=== PATIENT | female | born 1950 | race Caucasian/White ===

== ENCOUNTER → 2016-06-21 | Outpatient (REF) | payer MEDICARE ==
[~2016-06-21] MED LIST: ALBU83IN INH; FISH1000 PO; LISI-538 PO; PRAV20TA2 PO; VITA100037 PO
== END ==
LOC: M LAB REF 13:02
PROVIDERS: ATTEND Internal Medicine Nephrology
DX: N18.9 Chronic kidney disease, unspecified (principal); D63.1 Anemia in chronic kidney disease

== ENCOUNTER → 2016-06-26 | Outpatient (CLI) | payer MEDICARE ==
--- NOTE | 2016-06-26 09:43 | REP ---
RENAL ULTRASOUND: Real-time sonographic evaluation of the right renal fossa and left kidney performed, status post right nephrectomy for renal cell carcinoma several years ago. Right renal fossa appears unremarkable. Left kidney measures 11.9 x 5.7 x 5.4 cm. There is no hydronephrosis. There is a cyst in the upper pole of the left kidney 2.5 x 1.7 x 2.7 cm. Two smaller cysts are seen in the lower pole of the left kidney. No renal stones are seen. The urinary bladder is moderately distended with no mass or calculus. IMPRESSION: Status post right nephrectomy. Left renal cyst. Signed by Rick Almanza MD 06/26/2016 04:13 P
== END ==
LOC: M RAD 06:44
PROVIDERS: ATTEND Internal Medicine Nephrology
DX: N28.1 Cyst of kidney, acquired (principal); Z90.5 Acquired absence of kidney; I10 Essential (primary) hypertension; N18.4 Chronic kidney disease, stage 4 (severe)

== ENCOUNTER → 2016-07-27 | Outpatient (CLI) | payer MEDICARE ==
--- NOTE | 2016-07-27 13:49 | REP ---
Left lower extremity Duplex Doppler venous ultrasound: Real time compression and duplex Doppler interrogation of the left lower extremity deep venous system is performed. The left common femoral, superficial femoral and popliteal veins are fully compressible with transducer pressure and demonstrate normal spontaneous and phasic flow, without evidence of deep venous thrombosis. Impression: No evidence of deep venous thrombosis of the left lower extremity femoral popliteal venous system. Signed by Rick Almanza MD 07/27/2016 01:40 P
== END ==
LOC: M RAD 12:49
PROVIDERS: ATTEND Physician Assistant
DX: M79.605 Pain in left leg (principal)

== ENCOUNTER → 2016-08-14 | Outpatient (REF) | payer MEDICARE | LOC: M LAB REF 15:23 | PROVIDERS: ATTEND Ophthalmology | DX: H02.831 Dermatochalasis of right upper eyelid (principal); H02.834 Dermatochalasis of left upper eyelid ==

== ENCOUNTER 2016-10-15 23:37 | Inpatient (IN) | payer MEDICARE ==
[~2016-10-15] VITALS: Ht 162.6 cm; Wt 77.8 kg
[~2016-10-15 23:37] MED LIST changes: -VITA100037 PO; +VITA100067 PO
[2016-10-16] VITALS (7 sets, daily range): BP systolic 101–141; BP diastolic 55–70
[2016-10-16] MEDS ORDERED: METO50TA7 PO (01:20)
[2016-10-16] MEDS ORDERED: FERR32TA PO (01:20)
[2016-10-16] MEDS ORDERED: AMLO2.5T PO (01:20)
[2016-10-16] MEDS ORDERED: GABA-282 PO (01:20)
[2016-10-16] MEDS ORDERED: ZYRT10TA2 PO (01:20)
[2016-10-16] MEDS ORDERED: ANAS1TAB PO (01:20)
[2016-10-16] MEDS ORDERED: PROAAER10 INH (01:20)
[2016-10-16] MEDS ORDERED: FURO20TA2 PO (01:20)
[2016-10-16] MEDS ORDERED: LISI40TAB PO (01:21)
[2016-10-16] MEDS ORDERED: PAZE1DRO OU (01:22)
[2016-10-16] MEDS: NS 1,000 ML IV SCH ×3 (02:01→23:30)
--- NOTE | 2016-10-16 02:47 | HPEPDOC ---
General Date of Admission Oct 16, 2016 at 00:53 Primary Care Physician: Te Cornell MD Attending Physician: Te Cornell MD Chief Complaint The patient is a 66-year-old female admitted with a reason for visit of Hyponatremia. Source: Patient Exam Limitations: No limitations Timing/Duration: Day(s) (2) Severity: Severe Associated Symptoms: Loss of appetite, Nausea History of Present Illness 66-year-old female, history of breast cancer status post mastectomy, diverticulitis, status post colectomy colostomy and reversal, renal cancer status post nephrectomy, presented with a abdominal pain. Abdominal pain is since 2 days associated with nausea. no known diarrhea or constipation. She presented to the nearby emergency room at [facility] in [facility] and was transferred to [facility] for hyponatremia and enteritis and UTI Home Medications Scheduled (Pazeo) 0.7 % Harsh, 1 DROP OU DAILY, (Reported) Amlodipine Besylate (Amlodipine Besylate) 2.5 Mg Tab, 2.5 MG PO DAILY, (Reported ) Anastrozole (Anastrozole) 1 Mg Tab, 1 MG PO DAILY, (Reported) Cetirizine HCl (Zyrtec Allergy) 10 Mg Tab, 10 MG PO DAILY, (Reported) Ferrous Gluconate (Ferrous Gluconate) 324 Mg Tab, 324 MG PO DAILY, (Reported) Fish Oil (Fish Oil) 1,000 Mg Cap, 1,000 MG PO DAILY, (Reported) Furosemide (Furosemide) 20 Mg Tab, 60 MG PO DAILY, (Reported) Gabapentin (Gabapentin) 300 Mg Cap, 300 MG PO TID, (Reported) Lisinopril (Lisinopril) 40 Mg Tab, 40 MG PO DAILY, (Reported) Metoprolol Tartrate (Metoprolol Tartrate) 50 Mg Tab, 50 MG PO BID, (Reported) Pravastatin Sodium (Pravastatin Sodium) 20 Mg Tab, 20 MG PO DAILY, (Reported) Vitamin D (Vitamin D) 1,000 Unit Cap, 1,000 UNIT PO DAILY, (Reported) Scheduled PRN Albuterol Sulfate (Albuterol Sulfate) 2.5 Mg/3 Ml Nebu, 2.5 MG INH QID PRN for SOB/WHEEZING, (Reported) Albuterol Sulfate (Proair Hfa) 108 Mcg/Act Aer, 2 PUFF INH Q4H PRN for SHORTNESS OF BREATH, (Reported) Allergies Coded Allergies: Codeine (Verified Allergy, Unknown, 07/29/12) Ibuprofen (Verified Allergy, Unknown, 07/29/12) Iodine (Verified Allergy, Unknown, RASH, 07/29/12) Latex (Verified Allergy, Unknown, 07/29/12) NSAIDs (Verified Allergy, Unknown, 07/29/12) Penicillins (Verified Allergy, Unknown, HIVES, 07/29/12) Penicillins Cross Reactors (Verified Allergy, Unknown, HIVES, 07/29/12) Pseudoephedrine (Verified Allergy, Unknown, 07/29/12) Past Medical History Medical History Breast cancer, hypertensive renal cancer, diverticulitis Surgical History Appendectomy, mastectomy, oophorectomy, nephrectomy, colectomy and colostomy and reversal Family History Significant Family History: No pertinent family hx Social History * Smoker: less than 1 pack/day Alcohol: Denies Drugs: denies Recent Travel/Sick Contacts: Denies: Recent travel, Recent sick contacts Psychosocial History: No pertinent psych hx Review of Symptoms Constitutional: Denies: Chills, Fever, Night Sweats Eyes: Denies: Pain, Vision change ENT: Denies: Head Aches, Ear Pain, Dysphagia Skin: Denies: Rash, Lesions, Breakdown Pulmonary: Denies: Dyspnea, Cough Cardiovascular: Denies: Chest Pain, Palpitations, Orthopnea, Paroxysmal Noc. Dyspnea, Lt Headedness Gastrointestinal: Reports: Nausea, Abdominal Pain, Denies: Vomiting, Diarrhea Genitourinary: Denies: Dysuria, Frequency, Incontinence, Retention Hematologic: Denies: Bruising, Bleeding Excessively Musculoskeletal: Denies: Neck Pain, Back Pain, Joint Pain, Muscle Pain, Spasms Neurological: Denies: Weakness, Numbness, Change in speech, Confusion Psych: Reports: Mood Normal, Denies: Depression, Memory Issues Physical Examination General Exam: Positive: Alert, No Acute Distress Eye Exam: Positive: PERRLA, Conjunctiva & lids normal, EOMI, Negative: Sclera icteric ENT Exam: Positive: Atraumatic, Mucous membr. moist/pink, Pharynx Normal Neck Exam: Positive: Supple, Negative: JVD, thyromegaly Chest Exam: Positive: Clear to auscultation, Normal air movement Heart Exam: Positive: Rate Normal, Regular Rhythm, Normal S1, Normal S2, Negative: Murmurs, Rubs Telemetry: Positive: No significant arrhythmia Abdomen Exam: Positive: BS Hypoactive, Soft, Tenderness, Negative: Hepatospenomegaly Extremity Exam: Positive: Normal pulses, Negative: Clubbing, Cyanosis, Edema Skin Exam: Positive: Nl turgor and temperature, Negative: Breakdown, Lesion Neuro Exam: Positive: Normal Gait, Normal Speech, Cranial Nerves 3-12 NL, Reflexes 2+ Psych Exam: Positive: Mental status NL, Mood NL, Oriented x 3 Vital Signs Vital Signs Date Time Temp Pulse Resp B/P (MAP) Pulse Ox O2 Delivery O2 Flow Rate FiO2 10/16/16 01:00 Nasal Cannula 2.0 10/16/16 00:55 99.7 77 18 134/70 (91) 92 Assessment/Plan 66-year-old female, history of breast cancer status post mastectomy, renal cancer status post nephrectomy diverticulitis is status post colectomy presented with abdominal pain and admitted for enteritis hyponatremia and UTI Problems (1) Urinary tract infection Problem Text: WBC 17.1. Urine analysis positive for UTI as started IV Cipro. Follow-up culture (2) Enteritis Problem Text: CT of the abdomen showed enteritis as started IV Cipro and Flagyl (3) Hyponatremia Problem Text: Sodium 127 as started IV normal saline at 100 mL per hour. Follow -up sodium (4) Tobacco abuse Problem Text: As started nicotine patch (5) Hypertension Problem Text: Continue home dose of beta meagan, TRAE inhibitor, Lasix and Norvasc. Patient denies any history of CHF. We will get echocardiogram to rule out CHF Plan / VTE VTE Prophylaxis Ordered?: Yes Plan IVF: Initiate Diet: Continue Current Activity: Continue Current Medications: Replete Electrolytes IV Diagnostics: Repeat Labs in AM, TTE Anticipated Discharge: Home EKATERINA BUCKLEY MD Oct 16, 2016 02:47
[2016-10-16] MEDS: CIPROFLOXACIN 400 MG in APPROPRIATE DILUENT 1 EA IV SCH ×2 (04:07→16:22)
[2016-10-16] MEDS: metroNIDAZOLE 500 MG in APPROPRIATE DILUENT 1 EA IV SCH ×3 (05:24→21:14)
[2016-10-16 05:31] LABS: MEAN CORPUSCULAR HEMOGLOBIN 31.6 pg (27.0-33.0); MEAN CORPUSCULAR HGB CONC 34.4 g/dl (32.0-36.5); MEAN CORPUSCULAR VOLUME 91.9 fl (80.0-96.0); RED CELL DISTRIBUTION WIDTH 13.5 % (11.5-14.5)
[2016-10-16 05:42] LABS: ALBUMIN 2.5 GM/DL (3.2-5.2); ALBUMIN/GLOBULIN RATIO 0.78 (1.00-1.93); BILIRUBIN,TOTAL 0.5 MG/DL (0.2-1.0); CALCIUM LEVEL 8.3 MG/DL (8.8-10.2); CREATININE FOR GFR 1.26 MG/DL (0.55-1.02); POTASSIUM SERUM 3.7 MEQ/L (3.5-5.1); TOTAL PROTEIN 5.7 GM/DL (6.4-8.2)
[2016-10-16] MEDS: NICOTINE 14 MG/24 HR TRANSDERMAL TD SCH (09:35)
[2016-10-16] MEDS: ENOXAPARIN 40 MG/0.4 ML SYRINGE (J1650) SC SCH (09:35)
--- NOTE | 2016-10-16 10:56 | IPNPDOC ---
Subjective Date Seen The patient was seen on 10/16/16. Subjective Chief Complaint/HPI The patient is a 66-year-old female admitted with a reason for visit of Hyponatremia. Events since last encounter Pt this morning c/o tightness in her breathing. States that she usually uses a neb 3-4 times daily and hasn't had one since yest afternoon. Her abd pain has subsided some. She ate most of her breakfast this morning. She has not had a BM since a loose stool yesterday afternoon. General: Denies: Fatigue Constitutional: Denies: Chills, Fever Pulmonary: Reports: Dyspnea, Cough, Denies: Pleuritic Chest Pain Cardiovascular: Denies: Chest Pain, Palpitations Gastrointestinal: Reports: Abdominal Pain, Diarrhea, Denies: Nausea, Vomiting Genitourinary: Denies: Dysuria Neurological: Denies: Weakness Psych: Reports: Mood Normal Objective Physical Examination General Exam: Positive: Alert, No Acute Distress ENT Exam: Positive: Mucous membr. moist/pink Neck Exam: Positive: Supple, Negative: JVD, thyromegaly Chest Exam: Positive: Wheezing, Diminished, Negative: Clear to auscultation, Normal air movement Heart Exam: Positive: Rate Normal, Regular Rhythm, Normal S1, Normal S2, Negative: Murmurs, Rubs Telemetry: Positive: No significant arrhythmia Abdomen Exam: Positive: BS Hypoactive, Soft, Tenderness (mild LLQ tenderness), Negative: Hepatospenomegaly Extremity Exam: Positive: Normal pulses, Negative: Clubbing, Cyanosis, Edema Skin Exam: Positive: Nl turgor and temperature, Negative: Breakdown, Lesion Neuro Exam: Positive: Normal Gait, Normal Speech Psych Exam: Positive: Mental status NL, Mood NL, Oriented x 3 Assessment /Plan Problems (1) Urinary tract infection Status: Acute Discussed With: Patient Problem Specific Plan: Monitor Clinically, Repeat Labs Problem Text: D1 cipro/metro 10/16 obtain UCX/BCX done at [facility] WBC 17.1 on admission, repeat 12. Urine analysis positive for UTI as started IV Cipro. Follow-up culture pending (2) Enteritis Status: Acute Response to Treatment: Stable, Improving Discussed With: Patient Problem Specific Plan: Monitor Clinically, Repeat Labs Problem Text: 10/[address] AP-no BM since-check GI panel CT of the abdomen showed enteritis has had improvement in abd pain and stools hare less frequent (3) Hyponatremia Status: Acute Response to Treatment: Stable, Improving Discussed With: Patient Problem Specific Plan: Monitor Clinically, Repeat Labs Problem Text: baseline Na 136 favor 2 hypovolemic and dilutional (only took po H2O on 10/14, 10/15) 10/16 Sodium up from 127 to 128, continue NS 100 cc/H her oral intake has also improved. (4) Tobacco abuse Status: Chronic Response to Treatment: Stable Problem Text: As started nicotine patch (5) Hypertension Status: Chronic Response to Treatment: Stable Problem Text: Meds held, pressures low, monitor. (6) CKD (chronic kidney disease) stage 3, GFR 30-59 ml/min Status: Chronic Problem Text: baseline GFR 30s Plan/VTE VTE Prophylaxis Ordered?: Yes Plan IVF: Initiate Diet: Continue Current Activity: Continue Current Medications: Replete Electrolytes IV Diagnostics: Repeat Labs in AM, TTE Anticipated Discharge: Home VS, I&O, 24H, Fishbone Vital Signs/I&O Vital Signs Date Time Temp Pulse Resp B/P (MAP) Pulse Ox O2 Delivery O2 Flow Rate FiO2 10/16/16 08:00 97.9 62 18 101/55 (70) 97 Nasal Cannula 2.0 I&O- Last 24 Hours up to 6 AM 10/16/16 06:00 Intake Total 400 ml Output Total 0 ml Balance 400 ml Laboratory Data 24H LABS Laboratory Tests 2 10/16/16 04:57: Anion Gap 4L, Glomerular Filtration Rate 45.0, Blood Urea Nitrogen 29H, Creatinine 1.26H, Sodium Level 128L, Potassium Level 3.7, Chloride Level 93L, Carbon Dioxide Level 31, Calcium Level 8.3L, Aspartate Amino Transf (AST/SGOT) 11L, Alanine Aminotransferase (ALT/SGPT) 11L, Alkaline Phosphatase 81, Total Bilirubin 0.5, Total Protein 5.7L, Albumin 2.5L, Albumin/Globulin Ratio 0.78L CBC/BMP Laboratory Tests 10/16/16 04:57 Red Blood Count 3.22 L, Mean Corpuscular Volume 91.9, Mean Corpuscular Hemoglobin 31.6, Mean Corpuscular Hemoglobin Concent 34.4, Red Cell Distribution Width 13.5, Calcium Level 8.3 L, Aspartate Amino Transf (AST/SGOT) 11 L, Alanine Aminotransferase (ALT/SGPT) 11 L, Alkaline Phosphatase 81, Total Bilirubin 0.5, Total Protein 5.7 L, Albumin 2.5 L ANTELMO SALGADO PA-C Oct 16, 2016 10:56 Dimitri Frazier M.D. Oct 16, 2016 15:35
[2016-10-16] MEDS: IPRATROPIUM 0.5MG/ALBUTEROL 2.5MG INH SOL UD 3ML (DUONEB)(J7620) NEB SCH ×3 (10:57→20:57)
[2016-10-16] MEDS ORDERED: IPRATROPIUM 0.5MG/ALBUTEROL 2.5MG INH SOL UD 3ML (DUONEB)(J7620) NEB PRN (11:00)
[2016-10-16 19:44] LABS: OSMOLALITY URINE 173 MOSM/KG (500-800)
--- NOTE | 2016-10-16 23:03 | ECHO ---
DATE OF PROCEDURE: 10/16/2016 REFERRING PHYSICIAN: Ike Samuels MD INDICATION: Heart failure, unspecified. HEIGHT: 163 cm WEIGHT: 81.6 kg 2D MEASUREMENTS: Left atrium: 3.8 cm Aortic root: 3.2 cm Ventricular septum: 0.98 cm Posterior wall: 1.04 cm Left ventricle diastole: 4.8 cm LVOT: 2.1 cm Inferior vena cava: 1.4 cm (more than 50% respiratory variation). DOPPLER MEASUREMENTS: Aortic valve velocity: 141 cm/s LVOT velocity: 115 cm/s LVOT VTI: 22.4 cm Mitral E velocity: 84.9 cm/s Mitral A velocity: 75.5 cm/s Mitral deceleration time: 155 ms Pulmonary acceleration time: 204 ms MITRAL ANNULAR TISSUE DOPPLER: E prime septal: 7.4 cm/s E prime lateral: 11.3 cm/s DESCRIPTION: Rhythm was sinus. Image quality was fair. No pericardial effusion. This is a 2D, M-mode, color flow Doppler and pulse wave Doppler examination that included mitral annular tissue Doppler. CONCLUSIONS: 1. Hyperdynamic left ventricle (LV) systolic function. Left ventricular ejection fraction (LVEF) of 75% by visual estimate. Normal LV internal dimensions and wall thickness. No localized LV regional wall motion abnormalities. Normal LV diastolic function. 2. Otherwise normal appearing echocardiogram Doppler.
[2016-10-17] MEDS: IPRATROPIUM 0.5MG/ALBUTEROL 2.5MG INH SOL UD 3ML (DUONEB)(J7620) NEB SCH ×4 (01:16→19:50)
[2016-10-17] MEDS: CIPROFLOXACIN 400 MG in APPROPRIATE DILUENT 1 EA IV SCH ×2 (03:57→16:21)
[2016-10-17 04:00] VITALS: BP 132/63
[2016-10-17] MEDS: metroNIDAZOLE 500 MG in APPROPRIATE DILUENT 1 EA IV SCH ×3 (05:52→21:36)
[2016-10-17 06:01] LABS: MEAN CORPUSCULAR HEMOGLOBIN 30.6 pg (27.0-33.0); MEAN CORPUSCULAR HGB CONC 32.9 g/dl (32.0-36.5); RED CELL DISTRIBUTION WIDTH 13.3 % (11.5-14.5); WHITE BLOOD COUNT 6.8 K/mm3 (4.0-10.0)
[2016-10-17 06:23] LABS: ALBUMIN 2.7 GM/DL (3.2-5.2); ALBUMIN/GLOBULIN RATIO 0.79 (1.00-1.93); BILIRUBIN,TOTAL 0.2 MG/DL (0.2-1.0); CALCIUM LEVEL 8.6 MG/DL (8.8-10.2); CREATININE FOR GFR 1.33 MG/DL (0.55-1.02); GLOMERULAR FILTRATION RATE 42.2 (>45); POTASSIUM SERUM 3.6 MEQ/L (3.5-5.1); TOTAL PROTEIN 6.1 GM/DL (6.4-8.2)
[2016-10-17 08:00] VITALS: BP 146/70
--- NOTE | 2016-10-17 08:35 | IPNPDOC ---
Subjective Date Seen The patient was seen on 10/17/16. Subjective Chief Complaint/HPI The patient is a 66-year-old female admitted with a reason for visit of Hyponatremia. Events since last encounter Pt this morning is feeling better. She has less abd discomfort. She is breathing better after receiving her nebs. She c/o itchy, watery, irritated eyes. She was using Pazeo at home, but doesn't have an order for it. General: Denies: Fatigue Constitutional: Denies: Chills, Fever Pulmonary: Denies: Dyspnea, Cough Cardiovascular: Denies: Chest Pain, Palpitations Gastrointestinal: Denies: Nausea, Vomiting, Diarrhea Neurological: Denies: Weakness Psych: Reports: Mood Normal Objective Physical Examination General Exam: Positive: Alert, No Acute Distress ENT Exam: Positive: Mucous membr. moist/pink Neck Exam: Positive: Supple, Negative: JVD, thyromegaly Chest Exam: Positive: Clear to auscultation, Diminished, Negative: Normal air movement, Rhonchi, Wheezing Heart Exam: Positive: Rate Normal, Regular Rhythm, Normal S1, Normal S2, Negative: Murmurs, Rubs Telemetry: Positive: No significant arrhythmia Abdomen Exam: Positive: BS Hypoactive, Soft, Tenderness (mild LLQ tenderness), Negative: Hepatospenomegaly Extremity Exam: Positive: Normal pulses, Negative: Clubbing, Cyanosis, Edema Skin Exam: Positive: Nl turgor and temperature, Negative: Breakdown, Lesion Neuro Exam: Positive: Normal Gait, Normal Speech Psych Exam: Positive: Mental status NL, Mood NL, Oriented x 3 Assessment /Plan Problems (1) Urinary tract infection Status: Acute Discussed With: Patient Problem Specific Plan: Monitor Clinically, Repeat Labs Problem Text: 10/17 -Need to obtain Culture from [facility], should have results back today. WBC normalized, afebrile. D2 cipro/metro 10/16 obtain UCX/BCX done at [facility] WBC 17.1 on admission, repeat 12. Urine analysis positive for UTI as started IV Cipro. Follow-up culture pending (2) Enteritis Status: Acute Response to Treatment: Stable, Improving Discussed With: Patient Problem Specific Plan: Monitor Clinically, Repeat Labs Problem Text: 10/17 - no further loose stools since admission, abd pain has improved. 10/[address] AP-no BM since-check GI panel CT of the abdomen showed enteritis has had improvement in abd pain and stools hare less frequent (3) Hyponatremia Status: Acute Response to Treatment: Stable, Improving Discussed With: Patient Problem Specific Plan: Monitor Clinically, Repeat Labs Problem Text: 10/17 - Na has normalized, will d/c IVF, tolerating reg diet. transfer to the floor. 10/16 Sodium up from 127 to 128, continue NS 100 cc/H baseline Na 136 favor 2 hypovolemic and dilutional (only took po H2O on 10/14, 10/15)-supported by urine osm/Na her oral intake has also improved. (4) Tobacco abuse Status: Chronic Response to Treatment: Stable Problem Text: As started nicotine patch (5) Hypertension Status: Chronic Response to Treatment: Stable Problem Text: Meds held, pressures low, monitor. (6) CKD (chronic kidney disease) stage 3, GFR 30-59 ml/min Status: Chronic Problem Text: baseline GFR 30s Plan/VTE VTE Prophylaxis Ordered?: Yes Plan IVF: Initiate Diet: Continue Current Activity: Continue Current Medications: Replete Electrolytes IV Diagnostics: Repeat Labs in AM, TTE Anticipated Discharge: Home (Anticipate d/c in AM.) VS, I&O, 24H, Fishbone Vital Signs/I&O Vital Signs Date Time Temp Pulse Resp B/P (MAP) Pulse Ox O2 Delivery O2 Flow Rate FiO2 10/17/16 04:00 Nasal Cannula 2.0 10/17/16 04:00 98.0 76 18 132/63 (86) 95 I&O- Last 24 Hours up to 6 AM 10/17/16 06:00 Intake Total 4200 ml Output Total 3200 ml Balance 1000 ml Laboratory Data 24H LABS Laboratory Tests 2 10/16/16 19:13: Urine Appearance CLEAR, Urine Color STRAW, Urine pH 6.0, Urine Specific [place] 1.004, Urine Protein 2+H, Urine Glucose (UA) NEGATIVE, Urine Ketones NEGATIVE, Urine Urobilinogen 0.2, Urine Bilirubin NEGATIVE, Urine Leukocyte Esterase TRACEH, Urine Blood NEGATIVE, Urine Nitrite NEGATIVE, Urine WBC (Auto) 2, Urine RBC (Auto) 0, Urine Hyaline Casts (Auto) 0, Urine Bacteria (Auto) NEGATIVE, Urine Squamous Epithelial Cells 0, Urine Sperm (Auto) , Urine Random Osmolality 173L, Urine Random Sodium 24 10/17/16 05:45: Anion Gap 7L, Glomerular Filtration Rate 42.2L, Blood Urea Nitrogen 30H, Creatinine 1.33H, Sodium Level 136#, Potassium Level 3.6, Chloride Level 101, Carbon Dioxide Level 28, Calcium Level 8.6L, Aspartate Amino Transf (AST/SGOT) 11L, Alanine Aminotransferase (ALT/SGPT) 11L, Alkaline Phosphatase 80, Total Bilirubin 0.2#, Total Protein 6.1L, Albumin 2.7L, Albumin/Globulin Ratio 0.79L CBC/BMP Laboratory Tests 10/17/16 05:45 Red Blood Count 3.30 L, Mean Corpuscular Volume 93.0, Mean Corpuscular Hemoglobin 30.6, Mean Corpuscular Hemoglobin Concent 32.9, Red Cell Distribution Width 13.3, Calcium Level 8.6 L, Aspartate Amino Transf (AST/SGOT) 11 L, Alanine Aminotransferase (ALT/SGPT) 11 L, Alkaline Phosphatase 80, Total Bilirubin 0.2 #, Total Protein 6.1 L, Albumin 2.7 L ANTELMO SALGADO PA-C Oct 17, 2016 08:35 Dimitri Frazier M.D. Oct 17, 2016 15:01
[2016-10-17] MEDS: NICOTINE 14 MG/24 HR TRANSDERMAL TD SCH (09:17)
[2016-10-17] MEDS: ENOXAPARIN 40 MG/0.4 ML SYRINGE (J1650) SC SCH (09:18)
[2016-10-17 16:15] VITALS: BP 150/70
[2016-10-17 20:00] VITALS: BP 146/76
[2016-10-18] MEDS: IPRATROPIUM 0.5MG/ALBUTEROL 2.5MG INH SOL UD 3ML (DUONEB)(J7620) NEB SCH ×4 (01:08→19:36)
[2016-10-18] MEDS ORDERED: SLF 3 ML SYR IV PRN (02:45)
[2016-10-18 04:00] VITALS: BP 138/71
[2016-10-18] MEDS: CIPROFLOXACIN 400 MG in APPROPRIATE DILUENT 1 EA IV SCH ×2 (04:25→16:41)
[2016-10-18 05:36] LABS: MEAN CORPUSCULAR HEMOGLOBIN 30.5 pg (27.0-33.0); MEAN CORPUSCULAR HGB CONC 33.2 g/dl (32.0-36.5); MEAN CORPUSCULAR VOLUME 91.9 fl (80.0-96.0); RED CELL DISTRIBUTION WIDTH 13.6 % (11.5-14.5); WHITE BLOOD COUNT 5.6 K/mm3 (4.0-10.0)
[2016-10-18 05:49] LABS: ALBUMIN 2.6 GM/DL (3.2-5.2); ALBUMIN/GLOBULIN RATIO 0.79 (1.00-1.93); BILIRUBIN,TOTAL 0.2 MG/DL (0.2-1.0); CALCIUM LEVEL 8.4 MG/DL (8.8-10.2); CREATININE FOR GFR 1.25 MG/DL (0.55-1.02); GLOMERULAR FILTRATION RATE 45.4 (>45); POTASSIUM SERUM 3.7 MEQ/L (3.5-5.1); TOTAL PROTEIN 5.9 GM/DL (6.4-8.2)
[2016-10-18] MEDS: SLF 3 ML SYR IV SCH ×3 (06:00→22:05)
[2016-10-18] MEDS: metroNIDAZOLE 500 MG in APPROPRIATE DILUENT 1 EA IV SCH ×3 (06:13→22:05)
[2016-10-18 08:00] VITALS: BP 150/72
[2016-10-18] MEDS ORDERED: CIPR500T3 PO (08:20)
[2016-10-18] MEDS ORDERED: METR1TAB66 PO (08:20)
--- NOTE | 2016-10-18 09:43 | IPNPDOC ---
Subjective Date Seen The patient was seen on 10/18/16. Subjective Chief Complaint/HPI The patient is a 66-year-old female admitted with a reason for visit of Hyponatremia. Events since last encounter Pt was set to be D/C'ed home today and D/C summary was done but pt c/o abd pain and D/C was cancelled for today. Pt denies any other new issues. Constitutional: Denies: Chills, Fever Pulmonary: Denies: Dyspnea Cardiovascular: Denies: Chest Pain Gastrointestinal: Reports: Abdominal Pain, Denies: Nausea, Vomiting Objective Physical Examination General Exam: Positive: Alert, No Acute Distress ENT Exam: Positive: Mucous membr. moist/pink Neck Exam: Positive: Supple, Negative: JVD, thyromegaly Chest Exam: Positive: Clear to auscultation, Diminished, Negative: Normal air movement, Rhonchi, Wheezing Heart Exam: Positive: Rate Normal, Regular Rhythm, Normal S1, Normal S2, Negative: Murmurs, Rubs Telemetry: Positive: No significant arrhythmia Abdomen Exam: Positive: BS Hypoactive, Soft, Tenderness (mild LLQ tenderness), Negative: Hepatospenomegaly Extremity Exam: Positive: Normal pulses, Negative: Clubbing, Cyanosis, Edema Skin Exam: Positive: Nl turgor and temperature, Negative: Breakdown, Lesion Neuro Exam: Positive: Normal Gait, Normal Speech Psych Exam: Positive: Mental status NL, Mood NL, Oriented x 3 Assessment /Plan Problems (1) Urinary tract infection Status: Acute Discussed With: Patient Problem Specific Plan: Monitor Clinically, Repeat Labs Problem Text: 10/18 - Plan was initially for D/C but pt c/o increased abd pain after initially being seen this am and it was decided to cancel today's planned d/c. 10/17 -Need to obtain Culture from [facility], should have results back today. WBC normalized, afebrile. D2 cipro/metro 10/16 obtain UCX[facility]BCX done at [facility] WBC 17.1 on admission, repeat 12. Urine analysis positive for UTI as started IV Cipro. Follow-up culture pending (2) Enteritis Status: Acute Response to Treatment: Stable, Improving Discussed With: Patient Problem Specific Plan: Monitor Clinically, Repeat Labs Problem Text: 10/18 - Plan was initially for D/C but pt c/o increased abd pain after initially being seen this am and it was decided to cancel today's planned d/c. Will give bowel care. 10/17 - no further loose stools since admission, abd pain has improved. 10/[address] AP-no BM since-check GI panel CT of the abdomen showed enteritis has had improvement in abd pain and stools hare less frequent (3) Hyponatremia Status: Acute Response to Treatment: Stable, Improving Discussed With: Patient Problem Specific Plan: Monitor Clinically, Repeat Labs Problem Text: 10/18 - Plan was initially for D/C but pt c/o increased abd pain after initially being seen this am and it was decided to cancel today's planned d/c. Na 134 today. 10/17 - Na has normalized, will d/c IVF, tolerating reg diet. transfer to the floor. 10/16 Sodium up from 127 to 128, continue NS 100 cc/H baseline Na 136 favor 2 hypovolemic and dilutional (only took po H2O on 10/14, 10/15)-supported by urine osm/Na her oral intake has also improved. (4) Tobacco abuse Status: Chronic Response to Treatment: Stable Problem Text: As started nicotine patch (5) Hypertension Status: Chronic Response to Treatment: Stable Problem Text: Meds held, pressures low, monitor. (6) CKD (chronic kidney disease) stage 3, GFR 30-59 ml/min Status: Chronic Problem Text: baseline GFR 30s Plan/VTE VTE Prophylaxis Ordered?: Yes Plan IVF: Initiate Diet: Continue Current Activity: Continue Current Medications: Replete Electrolytes IV Diagnostics: Repeat Labs in AM, TTE Anticipated Discharge: Home (Anticipate d/c in AM.) Family Medicine attending note: I saw and examined Ms. Sim this morning; I d/ w GRISELDA Germain and I agree with his note above. She is still having some abdominal pain and has not had a BM in several days - consequently, GI panel has not been done and is still pending. Will continue antibiotics and give medications for constipation. I called [facility] for urine culture results , which are still pending and are not available. (KES) VS, I&O, 24H, Fishbone Vital Signs/I&O Vital Signs Date Time Temp Pulse Resp B/P (MAP) Pulse Ox O2 Delivery O2 Flow Rate FiO2 10/18/16 08:00 98.5 103 22 150/72 (98) 93 Room Air 10/18/16 04:00 2.0 I&O- Last 24 Hours up to 6 AM 10/18/16 06:00 Intake Total 2380 ml Output Total 2900 ml Balance -520 ml Laboratory Data 24H LABS Laboratory Tests 2 10/18/16 05:09: Anion Gap 5L, Glomerular Filtration Rate 45.4, Blood Urea Nitrogen 26H, Creatinine 1.25H, Sodium Level 134L, Potassium Level 3.7, Chloride Level 102, Carbon Dioxide Level 27, Calcium Level 8.4L, Aspartate Amino Transf (AST/SGOT) 11L, Alanine Aminotransferase (ALT/SGPT) 12, Alkaline Phosphatase 77, Total Bilirubin 0.2, Total Protein 5.9L, Albumin 2.6L, Albumin/Globulin Ratio 0.79L CBC/BMP Laboratory Tests 10/18/16 05:09 Red Blood Count 3.18 L, Mean Corpuscular Volume 91.9, Mean Corpuscular Hemoglobin 30.5, Mean Corpuscular Hemoglobin Concent 33.2, Red Cell Distribution Width 13.6, Calcium Level 8.4 L, Aspartate Amino Transf (AST/SGOT) 11 L, Alanine Aminotransferase (ALT/SGPT) 12, Alkaline Phosphatase 77, Total Bilirubin 0.2, Total Protein 5.9 L, Albumin 2.6 L Zaheer Aguilar Oct 18, 2016 09:43 ZAKIYA PATTERSON MD Oct 18, 2016 16:24
[2016-10-18] MEDS: PAZEO OU SCH (09:57)
[2016-10-18] MEDS: EYE OU SCH (09:57)
[2016-10-18] MEDS: ENOXAPARIN 40 MG/0.4 ML SYRINGE (J1650) SC SCH (09:57)
[2016-10-18] MEDS: NICOTINE 14 MG/24 HR TRANSDERMAL TD SCH (09:58)
[2016-10-18] MEDS ORDERED: MOM 30ML SUSPENSION UDC PO PRN (11:15)
[2016-10-18] MEDS ORDERED: ACETAMINOPHEN TAB 650MG DOSE (2X325MG) PO PRN (12:00)
--- NOTE | 2016-10-18 14:07 | DSES ---
DATE OF ADMISSION: 10/16/2016 DATE OF DISCHARGE: Discharge was held on this date 10/18/16 PRIMARY CARE PROVIDE: Dr. Te Cornell ATTENDING PHYSICIAN: Dr. Roseline Jimenez HISTORY OF PRESENT ILLNESS: Nguyen Sim is a 66-year-old female patient of Dr. Cornell who was admitted with abdominal pain. She initially presented to the emergency room at [facility] , but was transported to [facility] for hyponatremia, enteritis and urinary tract infection (UTI). The patient was started on IV fluids. Her outpatient furosemide was held. The patient had some hypotension and as noted received IV fluids and her antihypertensive medications including lisinopril, Lasix, metoprolol and amlodipine were all held. WBC was initially 17.1. She was started on IV Cipro and Flagyl for UTI and enteritis. During the course of her hospitalization, she received IV fluids and improved. By day of discharge, her sodium had improved overall to 134. IV fluids were stopped the day prior to discharge. She will be discharged home on eight additional days of Cipro and Flagyl to complete a ten day course of both. I discussed the case with her PCP, Dr. Cornell, and the plan is to restart her metoprolol at discharge, but continue to hold the lisinopril, furosemide and amlodipine until she is reevaluated in the office early next week. PHYSICAL EXAMINATION: Vitals: Temperature 99.1, pulse 104, respiratory rate 18 , blood pressure is 138/71. General: The patient is alert, in no acute distress. HEENT: Head is normocephalic, atraumatic. Chest: Clear to auscultation bilaterally. Heart regular rate and rhythm. Abdomen: Positive bowel sounds, soft, nontender. No rebound or guarding. Extremities: No edema. LABORATORY DATA: WBC 5.6, hemoglobin 9.7, hematocrit 29.2, and platelets 192. Sodium 134, potassium 3.7, chloride 102, carbon dioxide 27, BUN 26, creatinine 1.25, glucose 129, calcium 8.4, total bilirubin 0.2, AST 11, ALT 12, alkaline phosphatase 77, total protein 5.9, albumin 2.6. MEDICATIONS: - Cipro 500 mg by mouth twice a day times 8 days - metronidazole 500 mg by mouth three times a day times 8 days - albuterol nebs as needed shortness of breath or wheezing - albuterol puffer as needed shortness of breath or wheezing - anastrozole 1 mg by mouth daily - cetirizine 10 mg by mouth daily - ferrous gluconate 324 mg by mouth daily - fish oil by mouth daily - gabapentin 300 mg by mouth three times a day - metoprolol tartrate 50 mg by mouth twice a day - PAZEO drops 1 drop both eyes daily - pravastatin 20 mg by mouth daily - vitamin D 1000 units by mouth daily The patient will hold amlodipine, furosemide and lisinopril until reevaluated by Dr. Cornell. DISCHARGE INSTRUCTIONS: Followup with Dr. Cornell early next week. Activity as tolerated. Diet is regular. DISCHARGE DIAGNOSES: 1. Urinary tract infection. 2. Enteritis. 3. Hyponatremia. 4. Hypotension/hypertension. 5. Tobacco use. 6. Chronic kidney disease. 7. History of breast cancer. ADDENDUM: Discharge was held on this date 10/18/16, due to patient having increased abdominal pain. [facility]
[2016-10-18 16:00] VITALS: BP 147/79
[2016-10-18 20:00] VITALS: BP 107/63
[2016-10-19] MEDS: IPRATROPIUM 0.5MG/ALBUTEROL 2.5MG INH SOL UD 3ML (DUONEB)(J7620) NEB SCH ×2 (01:10→07:24)
[2016-10-19 01:55] VITALS: BP 160/83
[2016-10-19 06:00] VITALS: BP 144/77
[2016-10-19 06:27] LABS: MEAN CORPUSCULAR HEMOGLOBIN 30.4 pg (27.0-33.0); MEAN CORPUSCULAR HGB CONC 33.5 g/dl (32.0-36.5); MEAN CORPUSCULAR VOLUME 90.8 fl (80.0-96.0); RED CELL DISTRIBUTION WIDTH 13.6 % (11.5-14.5); WHITE BLOOD COUNT 4.6 K/mm3 (4.0-10.0)
[2016-10-19] MEDS: SLF 3 ML SYR IV SCH (06:27)
[2016-10-19] MEDS: metroNIDAZOLE 500 MG in APPROPRIATE DILUENT 1 EA IV SCH (06:27)
[2016-10-19] MEDS: CIPROFLOXACIN 400 MG in APPROPRIATE DILUENT 1 EA IV SCH (06:27)
[2016-10-19 06:45] LABS: ALBUMIN 2.8 GM/DL (3.2-5.2); ALBUMIN/GLOBULIN RATIO 0.8 (1.00-1.93); BILIRUBIN,TOTAL 0.3 MG/DL (0.2-1.0); CALCIUM LEVEL 9.1 MG/DL (8.8-10.2); CREATININE FOR GFR 1.43 MG/DL (0.55-1.02); GLOMERULAR FILTRATION RATE 38.8 (>45); POTASSIUM SERUM 4.2 MEQ/L (3.5-5.1); TOTAL PROTEIN 6.3 GM/DL (6.4-8.2)
[2016-10-19 07:24] VITALS: O2SAT 98
[2016-10-19] MEDS: ENOXAPARIN 40 MG/0.4 ML SYRINGE (J1650) SC SCH (08:32)
[2016-10-19] MEDS: EYE OU SCH (08:33)
[2016-10-19] MEDS: PAZEO OU SCH (08:33)
[2016-10-19] MEDS: NICOTINE 14 MG/24 HR TRANSDERMAL TD SCH (08:33)
--- NOTE | 2016-10-20 02:53 | DSES ---
DATE OF ADMISSION: 10/16/2016 DATE OF DISCHARGE: 10/19/2016 ADDENDUM TO DISCHARGE SUMMARY - REPORT #[id number]: After she was seen and agreed for discharge, she had breakfast and developed abdominal pain and, therefore, was reluctant to return home. She had lunch and dinner without any difficulties. She is eager to return home today. We have no additional concerns. Her discharge diagnoses and medications remain unchanged.
== END 2016-10-19 11:15 | disposition home or self-care (01) | DRG 392 ==
LOC: M PCU 10-16 00:53 → M MS5PR 10-19 02:00
PROVIDERS: ADMIT Internal Medicine; ATTEND Family Medicine
DX: K52.9 Noninfective gastroenteritis and colitis, unspecified (principal); E87.1 Hypo-osmolality and hyponatremia; N39.0 Urinary tract infection, site not specified; N18.3 Chronic kidney disease, stage 3 (moderate); I12.9 Hypertensive chronic kidney disease with stage 1 through stage 4 chronic kidney disease, or unspecified chronic kidney disease; Z79.899 Other long term (current) drug therapy; Z85.3 Personal history of malignant neoplasm of breast; Z90.10 Acquired absence of unspecified breast and nipple; Z90.5 Acquired absence of kidney; Z90.49 Acquired absence of other specified parts of digestive tract; Z85.528 Personal history of other malignant neoplasm of kidney; Z91.040 Latex allergy status; Z88.5 Allergy status to narcotic agent; Z88.0 Allergy status to penicillin; Z88.8 Allergy status to other drugs, medicaments and biological substances; Z88.6 Allergy status to analgesic agent; F17.200 Nicotine dependence, unspecified, uncomplicated

== ENCOUNTER 2016-12-19 19:27 | Emergency (ER) | payer MEDICARE ==
[~2016-12-19] VITALS: Ht 165.1 cm; Wt 77.2 kg
[~2016-12-19 19:27] MED LIST changes: +AMLO2.5T PO; +ANAS1TAB PO; +CIPR500T3 PO; +FERR32TA PO; +FURO20TA2 PO; +GABA-282 PO; +LISI40TAB PO; +METO50TA7 PO; +METR1TAB66 PO; +PAZE1DRO OU; +PROAAER10 INH; +ZYRT10TA2 PO
[2016-12-19] MEDS ORDERED: MORPHINE 2 MG/ML 1ML SYRINGE IV ONE (22:00)
[2016-12-19 22:11] LABS: BASO % 0.5 % (0.0-1.0); EOS # 0.3 K/mm3 (0.0-0.50); EOS % 2.9 % (0.0-3.0); LARGE UNSTAINED CELL # 0.2 K/mm3 (0.0-0.4); LARGE UNSTAINED CELL % 1.7 % (0.0-4.0); LYMPH # 1.1 K/mm3 (1.5-4.5); LYMPH % 11.9 % (24.0-44.0); MEAN CORPUSCULAR HEMOGLOBIN 30.8 pg (27.0-33.0); MEAN CORPUSCULAR HGB CONC 33.5 g/dl (32.0-36.5); MEAN CORPUSCULAR VOLUME 91.9 fl (80.0-96.0); MONO # 0.3 K/mm3 (0.0-0.8); MONO % 3.1 % (0.0-5.0); NEUTROPHILS # 7.5 K/mm3 (1.8-7.7); NEUTROPHILS % 80.1 % (36.0-66.0); PLATELET COUNT, AUTOMATED 203 k/mm3 (150-450); RED CELL DISTRIBUTION WIDTH 13.5 % (11.5-14.5); WHITE BLOOD COUNT 9.3 K/mm3 (4.0-10.0)
[2016-12-19 22:30] LABS: ALBUMIN 3.7 GM/DL (3.2-5.2); ALBUMIN/GLOBULIN RATIO 1.12 (1.00-1.93); BILIRUBIN,DIRECT 0.1 MG/DL (0.0-0.2); BILIRUBIN,TOTAL 0.4 MG/DL (0.2-1.0); CALCIUM LEVEL 9.6 MG/DL (8.8-10.2); CREATININE FOR GFR 1.59 MG/DL (0.55-1.02); GLOMERULAR FILTRATION RATE 34.4 (>45); POTASSIUM SERUM 4.5 MEQ/L (3.5-5.1)
[2016-12-19] MEDS ORDERED: READI-CAT 2 PO ONE (23:15)
[2016-12-19] MEDS ORDERED: METOCLOPRAMIDE INJ 10MG/2ML VIAL (J2765) IV ONE (23:30)
[2016-12-20] MEDS ORDERED: READI-CAT 2 PO ONE (00:15)
[2016-12-20] MEDS ORDERED: MORPHINE 4 MG/ML 1ML SYRINGE IV ONE (00:45)
--- NOTE | 2016-12-20 01:30 | REPUSA ---
CLINICAL HISTORY: Abdominal pain. TECHNIQUE: Multiple axial, sagittal and coronal CT images were obtained through the abdomen and pelvi s without administration of IV contrast material. Patient ingested oral contrast. COMMENTS: Surgical changes of anterior abdominal wall. Right nephrectomy. Moderate partial small bowel obstruction. Transition zone in the right lower quadrant. Mild diffuse thickening of the bladder. 3 mm left renal nonobstructing stone. 2.1 cm left renal cyst. The liver is of uniform attenuation without mass or defect. There is no intra or extrahepatic biliary ductal dilatation. The spleen is normal. The gallbladder is within normal limits. The pancreas is of normal contour and attenuation characteristics. There is no evidence of adrenal mass. The left kidney is normal in size, shape and configuration. No ureteral calculi are identified. There is no hydroureter or hydronephrosis. There is no evidence of abdominal ascites or lymphadenopathy. There is no evidence of intrinsic or extrinsic bladder mass. There is no pelvic ascites or lymphadeno camilo. Images of the lung bases show no evidence of pleural or parenchymal mass. There are no pleural effusi ons. The bony structures are free of lytic or blastic lesions. Multilevel degenerative changes are seen in volving the thoracolumbar spine. Scattered calcifications are seen involving the aorta and major branches compatible with atherosclero sis. Anterolisthesis of L5 on S1. IMPRESSION: Surgical changes/multifocal diastasis of the anterior abdominal wall. No associated incarcerated hernia. Moderate partial small bowel obstruction with a transition zone in the right lower quadrant. No bowel perforation, free fluid or pneumatosis intestinalis. Right nephrectomy. Nonobstructing left nephrolithiasis. Thank you for your kind referral of this patient.
[2016-12-20] MEDS ORDERED: MIRA3350 PO (02:17)
[2016-12-20] MEDS ORDERED: SIME1CAP PO (02:17)
[2016-12-20] MEDS ORDERED: traMADol 50 MG TAB (BULK 4 TAB ED) PO ONE (02:30)
[2016-12-20 02:31] VITALS: BP 133/68
== END 2016-12-20 02:36 | disposition home or self-care (01) ==
LOC: M ED 19:27
DX: R10.9 Unspecified abdominal pain (principal); K59.00 Constipation, unspecified; R93.5 Abnormal findings on diagnostic imaging of other abdominal regions, including retroperitoneum; Z85.3 Personal history of malignant neoplasm of breast; Z85.520 Personal history of malignant carcinoid tumor of kidney; Z90.5 Acquired absence of kidney; F17.200 Nicotine dependence, unspecified, uncomplicated; Z88.5 Allergy status to narcotic agent; Z88.8 Allergy status to other drugs, medicaments and biological substances; Z88.0 Allergy status to penicillin; Z91.040 Latex allergy status; Z79.899 Other long term (current) drug therapy
CPT/HCPCS: 74176; 80048; 80076; 81001; 82150; 83605; 83690; 85025; 86140; 96374; 96375; 96376; 99284; J2765

== ENCOUNTER → 2017-01-23 | Outpatient (REF) | payer MEDICARE ==
[~2017-01-23] MED LIST changes: +MIRA3350 PO; +SIME1CAP PO
[2017-01-23 14:33] LABS: BACTERIA, URINE NONE SEEN; HYALINE CAST, URINE NONE SEEN /lpf (0-1); RBC, URINE 0-1 /hpf (0-3); SQUAMOUS EPITHELIAL CELL URINE NONE SEEN /hpf (SMALL AMT); WBC, URINE 0-1 /hpf (0-3)
[2017-01-23 14:34] LABS: MICROSCOPIC EXAM PERFORMED
== END ==
LOC: M LAB REF 12:44
PROVIDERS: ATTEND Internal Medicine Nephrology
DX: R80.9 Proteinuria, unspecified (principal)

== ENCOUNTER → 2017-04-03 | Outpatient (CLI) | payer MEDICARE ==
--- NOTE | 2017-04-03 15:15 | REP ---
MRI brain without contrast: History: Headaches. History breast carcinoma. No comparison brain imaging. Technique: Axial and sagittal imaging planes are utilized for T1 and T2-weighted scans. Sequences include spin-echo, fast spin echo, FLAIR, and diffusion weighted sequences. MRI findings: No bony calvarial lesion is appreciated. Craniocervical junction and upper cervical cord are normal in appearance. There is some mastoid sinus T2 hyperintensity consistent with mucosal changes and fluid in the mastoid air cells. This is more prominent in the right mastoid than the left. There is no MR evidence of other paranasal sinus disease. No intraorbital abnormality is appreciated. There is diffuse cerebral atrophy. Periventricular and subcortical white matter T2 hyperintensities are seen consistent with small vessel atherosclerotic changes. No intracranial mass lesion is seen. There is no evidence of intracranial hemorrhage. Diffusion weighted scans show no evidence to suggest acute ischemia. No extra-axial fluid collection or midline shift is seen. Impression: Diffuse atrophy and small vessel changes. No acute intracranial lesion is seen. Mild bilateral mastoiditis changes are noted right greater than left. Signed by Nish Lovell MD 04/03/2017 04:02 P
== END ==
LOC: M RAD 12:52
PROVIDERS: ATTEND Family Medicine
DX: R51 Headache (principal); Z85.3 Personal history of malignant neoplasm of breast

== ENCOUNTER → 2017-09-13 | Outpatient (REF) | payer MEDICARE ==
[2017-09-13 15:36] LABS: CREATININE,RANDOM URINE < 13.0 MG/DL; SODIUM,RANDOM URINE 58 MEQ/L; URINE TOTAL PROTEIN 89.9 MG/DL (0-12)
[2017-09-13 16:01] LABS: OSMOLALITY SERUM 274 MOSM/KG (280-301)
[2017-09-13 16:05] LABS: OSMOLALITY URINE 198 MOSM/KG (500-800)
[2017-09-13 16:44] LABS: COMPLEMENT C4 31.2 MG/DL (10-40); TOTAL PROTEIN 6.6 GM/DL (6.4-8.2)
[2017-09-13 16:44] LABS: COMPLEMENT C3 99.4 MG/DL (90-180)
[2017-09-17 11:58] LABS: ALBUMIN 3.84 GM/DL (3.29-5.55); ALBUMIN % 58.2 % (55.8-66.1); ALPHA-1-GLOBULIN % 5.8 % (2.9-4.9); ALPHA-1-GLOBULINS 0.38 GM/DL (0.17-0.41); ALPHA-2-GLOBULINS 0.79 GM/DL (0.42-0.99); BETA-1-GLOBULINS 0.43 GM/DL (0.28-0.60); BETA-1-GLOBULINS % 6.5 % (4.7-7.2); BETA-2-GLOBULINS 0.39 GM/DL (0.19-0.55); BETA-2-GLOBULINS % 5.9 % (3.2-6.5); GAMMA GLOBULIN % 11.6 % (11.1-18.8); GAMMA GLOBULINS 0.77 GM/DL (0.65-1.58)
[2017-09-18 00:06] LABS: ANCA-ATYPICAL <1:20 titer (Neg:<1:20); ANTI DOUBLE STRAND-DNA AB <1 IU/mL (0-9); ANTI-GLOMERULAR BASEMENT MEMB 3 units (0-20); ANTINUCLEAR ANTIBODIES DIRECT Negative (Negative); CYTOPLASMIC NEUTROP AB ANCA-C <1:20 titer (Neg:<1:20); FREE LAMBDA LIGHT CHAINS URINE 8.08 mg/L (0.24-6.66); KAPPA/LAMBDA RATIO URINE 4.38 (2.04-10.37); PERINUCLEAR AB ANCA-P <1:20 titer (Neg:<1:20)
[2017-09-20 15:47] LABS: UPEP INTERPRETATION NO M-SPIKE NOTED; URINE VOLUME RANDOM ML
== END ==
LOC: M LAB REF 13:08
DX: R80.9 Proteinuria, unspecified (principal); E87.1 Hypo-osmolality and hyponatremia
CPT/HCPCS: 83930

== ENCOUNTER → 2017-09-18 | Outpatient (REF) | payer MEDICARE ==
[2017-09-18 19:41] LABS: CREATININE, URINE 35.2 MG/DL; URINE TOTAL PROTEIN 138.5 MG/DL (0-12)
[2017-09-19 08:21] LABS: CREATININE 24 HOUR, URINE 985.6 MG/24HR (600-1800); TOTAL VOLUME, URINE 2800 ML
== END ==
LOC: M LAB REF 16:55
DX: E87.1 Hypo-osmolality and hyponatremia (principal)
CPT/HCPCS: 81050

== ENCOUNTER → 2017-11-13 | Outpatient (REF) | payer MEDICARE ==
[2017-11-13 14:03] LABS: TOTAL PROTEIN,RANDOM URINE 85.2 MG/DL (0.0-12.0)
[2017-11-13 14:03] LABS: CREATININE,RANDOM URINE 16.2 MG/DL
== END ==
LOC: M LAB REF 12:58
DX: R80.9 Proteinuria, unspecified (principal)
CPT/HCPCS: 82570

== ENCOUNTER → 2017-11-16 | Outpatient (CLI) | payer MEDICARE | LOC: M RAD 07:56 | DX: F17.210 Nicotine dependence, cigarettes, uncomplicated (principal); Z12.2 Encounter for screening for malignant neoplasm of respiratory organs | CPT/HCPCS: G0297 ==

== ENCOUNTER → 2017-11-19 | Outpatient (REF) | payer MEDICARE ==
[2017-11-19 13:26] LABS: PROTHROMBIN TIME 12.2 SECONDS (12.1-14.4)
== END ==
LOC: M LAB REF 12:52
DX: Z01.812 Encounter for preprocedural laboratory examination (principal); R80.9 Proteinuria, unspecified; N18.3 Chronic kidney disease, stage 3 (moderate); Z79.01 Long term (current) use of anticoagulants
CPT/HCPCS: 85610

== ENCOUNTER → 2017-11-29 | Outpatient (CLI) | payer MEDICARE ==
[~2017-11-29] MED LIST changes: -ALBU83IN INH; -AMLO2.5T PO; -ANAS1TAB PO; -CIPR500T3 PO; -FERR32TA PO; -FISH1000 PO; -FURO20TA2 PO; -GABA-282 PO; +LIDOCAINE 1% MDV 20ML VIAL As Ordered; -LISI-538 PO; -LISI40TAB PO; -METO50TA7 PO; -METR1TAB66 PO; -MIRA3350 PO; -PAZE1DRO OU; -PRAV20TA2 PO; -PROAAER10 INH; -SIME1CAP PO; -VITA100067 PO; -ZYRT10TA2 PO
== END ==
LOC: M RADPRO 10:09
DX: N18.3 Chronic kidney disease, stage 3 (moderate) (principal); R80.9 Proteinuria, unspecified; R60.0 Localized edema; J44.9 Chronic obstructive pulmonary disease, unspecified; I12.9 Hypertensive chronic kidney disease with stage 1 through stage 4 chronic kidney disease, or unspecified chronic kidney disease; F17.210 Nicotine dependence, cigarettes, uncomplicated; Z79.899 Other long term (current) drug therapy; Z88.0 Allergy status to penicillin; Z88.8 Allergy status to other drugs, medicaments and biological substances; Z91.040 Latex allergy status; Z85.3 Personal history of malignant neoplasm of breast; Z90.5 Acquired absence of kidney; Z85.528 Personal history of other malignant neoplasm of kidney; Z90.13 Acquired absence of bilateral breasts and nipples
CPT/HCPCS: 50200

== ENCOUNTER → 2018-01-01 | Outpatient (CLI) | payer MEDICARE | LOC: M PLARAD 09:25 | DX: R91.8 Other nonspecific abnormal finding of lung field (principal) | CPT/HCPCS: 78815 ==

== ENCOUNTER → 2018-06-11 | Outpatient (CLI) | payer MEDICARE ==
[~2018-06-11] MED LIST changes: +ALBU83IN INH; +AMLO2.5T3 PO; +ANAS1TAB2 PO; +CIPR500T3 PO; +FERR32TA PO; +FISH1000 PO; +FURO20TA2 PO; +GABA-843 PO; -LIDOCAINE 1% MDV 20ML VIAL As Ordered; +LISI-538 PO; +LISI2.5T5 PO; +LISI40TA PO; +METO50TA7 PO; +METR-201 PO; +MIRA3350 PO; +MULTCAP PO; +PAZE1DRO OU; +PRAV20TA2 PO; +PROAAER10 INH; +SIME1CAP PO; +TORS5TAB2 PO; +VITA100067 PO; +ZYRT10CA5 PO
--- NOTE | 2018-06-11 11:57 | REP ---
CT CHEST WITHOUT CONTRAST: 06/11/2018. Comparison: PET CT 01/01/2018, low dose lung screening CT 11/16/2017. Clinical history: Follow-up abnormal finding in the right middle lobe on previous CT. By PET CT, very low-level uptake. Findings: Noncontrast protocol followed with coronal and sagittal reconstructions. The pleural based curvilinear and nodular opacity in the right middle lobe near the minor fissure and anterior chest wall shows stranding in a curvilinear fashion towards the hilum. It abuts the pleura and does have a morphology suggestive of rounded atelectasis with scarring. Its size is unchanged from the October 2017 study. The opacity in the lateral basal segment right lower lobe in October is completely resolved. However, there is a new smaller nodular and curvilinear irregular density in the left lower lobe posterior basal segment. This measures up to 17 mm. There is no pleural effusion. No infiltrates with air bronchograms. No other areas of pleural thickening, calcified pleural plaque, parenchymal nodule/mass. The apices without scarring or pneumothorax. Heart is not enlarged. There is no pericardial thickening or effusion. Some coronary calcifications are visible as are vascular calcifications in the aortic wall. No aneurysm. I see no pathologic sized mediastinal, hilar, axillary or supraclavicular adenopathy. Indwelling port catheter via the left subclavian route is unchanged. The bone windows show the sternum, manubrium, medial clavicles, humeral heads, scapulae intact Left ribs are unremarkable. The right ribs four through seven show lateral and posterolateral posttraumatic changes with some healed fractures, one ununited fracture. This is may be related to prior surgery. The patient has had prior bilateral mastectomies. The spine shows hemangioma in the T7 vertebral body. There are marginal osteophytes and mild kyphosis. No acute compression deformities. The upper abdomen shows two midline supraumbilical hernias. The bowel is seen incarcerated but not strangulated within these. That portion of liver, entire spleen and adrenal glands are unremarkable. There is no hiatal hernia. Gallbladder shows some dependent sludge but no definite calcified stone. Upper pole of the left kidney shows an exophytic cyst posteriorly. Calcifications in the renal artery noted. Clips from prior right nephrectomies are seen. Impression: 1. Stable appearance of the right middle lobe peripheral curvilinear nodular density with stranding towards the hilum. That pattern would be suggestive of rounded atelectasis. This should be followed. 2. The lateral basal segment right lower lobe consolidative opacity from 11/16/2017 is completely resolved but there is a new 17 mm peripheral nodular infiltrate in the posterior basal segment of the left lower lobe now visible. No other interval changes. Etiology of this finding is uncertain. Electronically Signed by Reynaldo Salinas MD 06/11/2018 05:49 P
== END ==
LOC: M RAD 08:03
PROVIDERS: ATTEND Internal Medicine Pulmonary Disease
DX: R91.8 Other nonspecific abnormal finding of lung field (principal)

== ENCOUNTER → 2018-12-03 | Outpatient (CLI) | payer MEDICARE ==
[~2018-12-03] MED LIST changes: +LISI-1046 PO; -LISI2.5T5 PO; -METR-201 PO; +METR-265 PO
--- NOTE | 2018-12-03 15:31 | REP ---
CT OF THE CHEST WITHOUT CONTRAST: REASON FOR EXAM: Unspecified abnormal finding of the lung field. COMPARISON: CT chest without contrast 06/11/2018. TECHNIQUE: CT of the chest was performed without contrast with coronal sagittal reformatted images and coronal MIP imaging. FINDINGS: A left-sided anterior chest wall port catheter is unchanged in position. The tip terminates within the superior vena cava. There is no supraclavicular or axillary lymphadenopathy. The upper airway is patent. There are atherosclerotic calcifications of the thoracic aorta and coronary vessels. The heart size is normal. There is no pleural or pericardial effusion. The pleural-based thickening and curvilinear nodularity within the right middle lobe is unchanged when compared to the 06/11/2018 examination; the nodular portion measures 15 x 22 mm, unchanged (image 44). The left lower lobe nodularity measuring up to 17 mm, previously described as new on the May examination, has resolved. There is a new 2 mm ground-glass nodule within the left upper lobe (image 22). There are new ground-glass tree-in-bud nodularity within the right and left lung bases as well as the lingula (image 68, 76, 54). These findings are likely inflammatory. No new suspicious nodule. Within the upper abdomen, there is redemonstration of anterior abdominal wall hernias containing strangulated bowel. There is redemonstration of the hypoattenuating exophytic left renal lesion. The [place] right kidney is surgically absent. Note is again made of healing right rib fractures and non-healed 4th rib fracture on the right. Note is made of prior bilateral mastectomies. IMPRESSION: 1. Stable appearance of right middle lobe peripheral curvilinear nodular density, suggestive of atelectasis with or without scarring. Recommend continued followup. 2. Resolved nodularity within the left lung base, likely inflammatory. 3. New ground-glass tree-in-bud opacities within both lung bases and the lingula as well as a 2 mm ground-glass nodule within the left apex, likely inflammatory in etiology. Correlate with patient symptomatology and recent medications. Electronically Signed by Jitendra Siddiqui MD 12/04/2018 10:58 A
== END ==
LOC: M RAD 09:52
PROVIDERS: ATTEND Internal Medicine Pulmonary Disease
DX: R91.8 Other nonspecific abnormal finding of lung field (principal)

== ENCOUNTER → 2019-12-19 | Outpatient (REF) | payer MEDICARE ==
[~2019-12-19] MED LIST changes: -LISI-1046 PO; +LISI2.5T2 PO
[2019-12-19 16:17] LABS: HEMATOCRIT 44.3 % (36.0-47.0); HEMOGLOBIN 14.5 g/dl (12.0-15.5); MEAN CORPUSCULAR HEMOGLOBIN 29.2 pg (27.0-33.0); MEAN CORPUSCULAR HGB CONC 32.7 g/dl (32.0-36.5); MEAN CORPUSCULAR VOLUME 89.3 fl (80.0-96.0); PLATELET COUNT, AUTOMATED 246 10^3/uL (150-450); RED BLOOD COUNT 4.96 10^6/uL (4.00-5.40); WHITE BLOOD COUNT 6.5 10^3/uL (4.0-10.0)
[2019-12-19 16:21] LABS: ALBUMIN 3.5 GM/DL (3.2-5.2); BILIRUBIN,TOTAL 0.3 MG/DL (0.2-1.0); CHOLESTEROL RISK RATIO 2.437 (<5); CREATININE FOR GFR 1.56 MG/DL (0.55-1.30); GLOMERULAR FILTRATION RATE 34.8 (>39); POTASSIUM SERUM 4.3 MEQ/L (3.5-5.1); THYROID STIMULATING HORMONE 2.08 uIU/ML (0.358-3.740); TOTAL PROTEIN 6.8 GM/DL (6.4-8.2)
== END ==
LOC: M LABDRAWC 10:20
PROVIDERS: ATTEND Family Medicine
DX: J43.9 Emphysema, unspecified (principal); I27.81 Cor pulmonale (chronic); E78.00 Pure hypercholesterolemia, unspecified